=== PATIENT | female | born 1970 | race Caucasian/White ===

== ENCOUNTER 2020-03-02 09:48 | Observation (INO) | payer OTHER ==
[~2020-03-02] VITALS: Ht 162.5 cm; Wt 71.9 kg
[2020-03-02 09:48] VITALS: BP 126/66
[~2020-03-02 09:48] MED LIST: AUGMENTIN 875875 MG PO; DAYPRO600 MG PO; KEFLEX500 MG PO; MOTRIN800 MG PO; NKHM
[2020-03-02 10:08] LABS: BASO # 0.1 10*3/uL (0.0-0.1); BASO % 1.1 % (0.0-1.0); EOS # 0.6 10*3/uL (0.0-0.4); EOS % 8.8 % (1.0-4.0); HEMATOCRIT 42.6 % (37.0-47.0); LYMPH # 1.8 10*3/uL (1.3-4.4); LYMPH % 28.8 % (27.0-41.0); MEAN CORPUSCULAR HGB CONC 33.3 g/dl (33.0-37.0); MEAN PLATELET VOLUME 9.4 fl (9.6-12.3); MONO # 0.7 10*3/uL (0.1-1.0); MONO % 11.1 % (3.0-9.0); NEUT # 3.2 10*3/uL (2.3-7.9); PLATELET COUNT AUTOMATED 309 10*3/uL (130-400); RED BLOOD COUNT 4.58 10*6/uL (4.10-5.10); WHITE BLOOD COUNT 6.3 10*3/uL (4.8-10.8)
[2020-03-02 10:18] LABS: ACT PARTIAL THROMBO TIME 28.5 SECONDS (20.0-32.1)
[2020-03-02 10:25] LABS: ALBUMIN 3.8 gm/dl (3.1-4.5); ALKALINE PHOSPHATASE 102 U/L (45-117); BUN 14 mg/dl (7-24); CHLORIDE 108 mmol/L (98-107); CREATININE 0.69 mg/dL (0.55-1.02); POTASSIUM 3.8 mmol/L (3.5-5.1); SGOT/AST 16 IU/L (3-35); SGPT/ALT 25 U/L (12-78); SODIUM 141 mmol/L (136-145); TOTAL PROTEIN 7.5 gm/dL (6.4-8.2)
[2020-03-02 10:29] LABS: LIPASE 137 U/L (73-393)
[2020-03-02 10:31] LABS: TROPONIN I < 0.015 ng/ml (<0.045)
[2020-03-02 12:33] VITALS: BP 146/89
[2020-03-02 15:00] VITALS: BP 166/94
[2020-03-02 20:00] VITALS: BP 148/92
[2020-03-03] VITALS: BP 134/93
[2020-03-03 06:05] LABS: BASO # 0.1 10*3/uL (0.0-0.1); BASO % 0.9 % (0.0-1.0); EOS # 0.5 10*3/uL (0.0-0.4); EOS % 7.6 % (1.0-4.0); HEMATOCRIT 42.8 % (37.0-47.0); LYMPH # 1.9 10*3/uL (1.3-4.4); LYMPH % 26.9 % (27.0-41.0); MEAN CELL VOLUME 91.6 fl (81.0-99.0); MEAN CORPUSCULAR HGB 31.5 pg (27.0-31.0); MEAN CORPUSCULAR HGB CONC 34.3 g/dl (33.0-37.0); MEAN PLATELET VOLUME 9.7 fl (9.6-12.3); MONO # 0.8 10*3/uL (0.1-1.0); MONO % 11.5 % (3.0-9.0); NEUT # 3.6 10*3/uL (2.3-7.9); NEUT % 52.8 % (47.0-73.0); PLATELET COUNT AUTOMATED 315 10*3/uL (130-400); RED BLOOD COUNT 4.67 10*6/uL (4.10-5.10); RED CELL DISTRI WIDTH 11.9 % (0-14.5); WHITE BLOOD COUNT 6.9 10*3/uL (4.8-10.8)
[2020-03-03 06:27] LABS: ALBUMIN 3.6 gm/dl (3.1-4.5); BUN 11 mg/dl (7-24); CHLORIDE 106 mmol/L (98-107); CHOLESTEROL 195 mg/dL (<200); POTASSIUM 3.7 mmol/L (3.5-5.1); SGOT/AST 14 IU/L (3-35); SGPT/ALT 24 U/L (12-78); SODIUM 139 mmol/L (136-145); TOTAL PROTEIN 7.2 gm/dL (6.4-8.2); TRIGLYCERIDES 53 mg/dl (<150); VLDL CHOLESTEROL 11 mg/dL (6-40)
[2020-03-03 06:34] LABS: ALKALINE PHOSPHATASE 92 U/L (45-117); FREE T4 1.02 ng/dl (0.76-1.46); HDL CHOLESTEROL 63 mg/dl (40-60); LDL CHOLESTEROL 121 mg/dL (9-159)
[2020-03-03 07:13] LABS: VITAMIN D, 25-HYDROXY 43.7 ng/mL (30-100)
[2020-03-03 08:00] VITALS: BP 148/99
== END 2020-03-03 11:17 | disposition home or self-care (01) ==
LOC: ED 09:48 → EDHOLD 11:15 → 4E 13:58
PROVIDERS: Emergency Medicine; Internal Medicine; ADMIT Internal Medicine; ATTEND Internal Medicine
DX: R07.89 Other chest pain (principal); F41.9 Anxiety disorder, unspecified; E87.8 Other disorders of electrolyte and fluid balance, not elsewhere classified; E83.41 Hypermagnesemia; F12.20 Cannabis dependence, uncomplicated; F12.90 Cannabis use, unspecified, uncomplicated

== ENCOUNTER 2020-03-04 11:03 | Observation (INO) | payer OTHER ==
[~2020-03-04] VITALS: Ht 162.5 cm; Wt 70.1 kg
[2020-03-04 11:27] VITALS: BP 160/108
[2020-03-04 11:29] LABS: BASO # 0.1 10*3/uL (0.0-0.1); EOS # 0.4 10*3/uL (0.0-0.4); EOS % 5.4 % (1.0-4.0); HEMATOCRIT 43.3 % (37.0-47.0); LYMPH # 1.9 10*3/uL (1.3-4.4); LYMPH % 27.4 % (27.0-41.0); MEAN CELL VOLUME 91.5 fl (81.0-99.0); MEAN CORPUSCULAR HGB 31.1 pg (27.0-31.0); MEAN CORPUSCULAR HGB CONC 33.9 g/dl (33.0-37.0); MEAN PLATELET VOLUME 9.6 fl (9.6-12.3); MONO # 0.8 10*3/uL (0.1-1.0); MONO % 11.5 % (3.0-9.0); NEUT # 3.8 10*3/uL (2.3-7.9); NEUT % 54.4 % (47.0-73.0); PLATELET COUNT AUTOMATED 342 10*3/uL (130-400); RED BLOOD COUNT 4.73 10*6/uL (4.10-5.10)
[2020-03-04 11:46] LABS: ACT PARTIAL THROMBO TIME 28.5 SECONDS (20.0-32.1)
[2020-03-04 11:47] LABS: ALBUMIN 3.9 gm/dl (3.1-4.5); ALKALINE PHOSPHATASE 103 U/L (45-117); BUN 12 mg/dl (7-24); CHLORIDE 107 mmol/L (98-107); CREATININE 0.63 mg/dL (0.55-1.02); POTASSIUM 3.8 mmol/L (3.5-5.1); SGOT/AST 18 IU/L (3-35); SGPT/ALT 23 U/L (12-78); SODIUM 139 mmol/L (136-145); TOTAL PROTEIN 7.7 gm/dL (6.4-8.2)
[2020-03-04 11:51] LABS: TROPONIN I < 0.015 ng/ml (<0.045)
--- NOTE | 2020-03-04 12:08 | NUR ---
CCA 50, admitted to , under the services of EDMUND Styles DO with a diagnosis of CHEST PAIN, R/O ACUTE AL. Chief complaint is MID-STERNAL CHEST PAIN. Patient arrived via ambulatory from ER. Monitor applied. Initial assessment completed. Vital signs taken and recorded. EDMUND STYLES DO notified of admission to the unit. Orders received. See assessment for past medical history, medications and allergies. Patient and/or family oriented to unit. [address] visitation policy reviewed. Clothing/patient valuable form completed. MIRNA RANDOLPH.
[2020-03-04 12:16] VITALS: BP 162/94
--- NOTE | 2020-03-04 12:27 | NUR ---
'S OFFICE NOTIFIED OF CONSULT.
[2020-03-04 16:00] VITALS: BP 132/85
--- NOTE | 2020-03-04 17:00 | NUR ---
PATIENT RESTING QUIETLY IN BED. NO DISTRESS NOTED. RESPIRATIONS EASY, REGULAR ON RA. DENIES ANY CHEST PAIN/DISCOMFORT AT THIS TIME. PT AWARE OF CTA ORDER. PT NPO FOR CTA.
--- NOTE | 2020-03-04 18:02 | NUR ---
PT OFF FLOOR FOR CTA.
[2020-03-04 20:00] VITALS: BP 137/82
--- NOTE | 2020-03-04 20:30 | NUR ---
PT SEEN AND ASSESSED. PT DENIES ANY CURRENT C/O AT THIS TIME.
--- NOTE | 2020-03-04 23:51 | NUR ---
24 HR chart check completed.
[2020-03-05] VITALS: BP 128/76
[2020-03-05 06:49] LABS: BASO # 0.1 10*3/uL (0.0-0.1); BASO % 0.8 % (0.0-1.0); EOS # 0.4 10*3/uL (0.0-0.4); EOS % 5.9 % (1.0-4.0); LYMPH # 1.9 10*3/uL (1.3-4.4); LYMPH % 30.2 % (27.0-41.0); MEAN CELL VOLUME 93.6 fl (81.0-99.0); MEAN CORPUSCULAR HGB 31.3 pg (27.0-31.0); MEAN CORPUSCULAR HGB CONC 33.4 g/dl (33.0-37.0); MEAN PLATELET VOLUME 10.1 fl (9.6-12.3); MONO # 0.7 10*3/uL (0.1-1.0); MONO % 11.1 % (3.0-9.0); NEUT # 3.3 10*3/uL (2.3-7.9); NEUT % 51.7 % (47.0-73.0); PLATELET COUNT AUTOMATED 320 10*3/uL (130-400); RED BLOOD COUNT 4.38 10*6/uL (4.10-5.10); RED CELL DISTRI WIDTH 12.4 % (0-14.5); WHITE BLOOD COUNT 6.3 10*3/uL (4.8-10.8)
[2020-03-05 07:26] LABS: CHLORIDE 107 mmol/L (98-107); POTASSIUM 3.6 mmol/L (3.5-5.1); SODIUM 141 mmol/L (136-145)
[2020-03-05 07:32] LABS: BUN 12 mg/dl (7-24); CREATININE 0.58 mg/dL (0.55-1.02)
[2020-03-05 08:00] VITALS: BP 135/88; BP 140/92
--- NOTE | 2020-03-05 09:00 | NUR ---
Lottery Manager in to talk to patient. Patient states lives at home alone with her family checking in on her. There are 0 steps in the home. Physician: [facility]: [facility] Home health services: none Patient's level of ADLs: INDEPENDENT Patient has working utilities: yes DME: none Follow-up physician's appointment after d/c: will be made by the hospitalist nurse director upon discharge Does patient want to access PORTAL?: no Discharge plan discussed with patient. She is getting ready for a bedside echo. She lives at home alone with her family checking in on her. She states she called the resident clinic and she was unable to get an appt for a month. She started having chest pains again and came to the ER. She is independent in her ADLs and ambulation. Discussed home health care services and she declines. CM will continue to follow for any discharge planning needs. When medically stable she will be discharged to home. She states she drove herself here and plans to drive herself home. JUDSON LONDONO
--- NOTE | 2020-03-05 10:50 | NUR ---
PATIENT OFF FLOOR AT STRESS TEST.
--- NOTE | 2020-03-05 12:00 | NUR ---
INFORMED CONSENT SIGNED FOR CARDIOLYTE STRESS TEST WITH DR. ORELLANA. RESTING EKG NSR, HR 77, BP 116/66. COMPLETED 7:30 OF A STANDARD CONCHA PROTOCOL COMPLETING 1:30 STAGE III, 3.4MPH/14% GRADE. PEAK HEART RATE OF 162 ACHIEVED WHICH IS 94% PREDICTED MAXIMUM AND A PEAK BP OF 148/82. PVC'S NOTED WITH NONDIAGNOSTIC ST CHANGES. TEST TERMINATED D/T FATIGUE. HAS A GOOD EXERCISE TOLERANCE. PT DID C/P CHEST PRESSURE RATING IT 3/10 IN STAGE III WHICH RESOLVED 4 MINUTES INTO RECOVERY 0/10. LAST RECOVERY HR 102, BP 136/82. WAITING NUCLEAR SCANNING IN STABLE CONDITION.
[2020-03-05 16:00] VITALS: BP 151/87
--- NOTE | 2020-03-05 17:20 | NUR ---
Discharge instructions reviewed with patient/family. Patient receptive and verbalizes understanding. Follow-up care arranged. Written instructions given to patient/family. [place]OCK DISCONTINUED. DIRECT CARE STAFFER REMOVED. PATIENT AMBULATORY OFF FLOOR. TERI RODRIGUEZ
== END 2020-03-05 17:35 | disposition home or self-care (01) ==
LOC: ED 11:03 → 4E 11:36 → EDHOLD 11:36 → 4E 11:36
PROVIDERS: Internal Medicine; Physician Assistant; ADMIT Internal Medicine; ATTEND Internal Medicine
DX: R07.89 Other chest pain (principal); R03.0 Elevated blood-pressure reading, without diagnosis of hypertension; E83.41 Hypermagnesemia; R94.31 Abnormal electrocardiogram [ECG] [EKG]; F41.9 Anxiety disorder, unspecified